=== PATIENT | female | born 1935 | race Caucasian/White ===

== ENCOUNTER 2017-06-17 00:09 | Inpatient (IN) | payer OTHER ==
[~2017-06-17] VITALS: Ht 160 cm; Wt 93.6 kg
[~2017-06-17 00:09] MED LIST: ALBUTEROL2.5 MG/3 M INH; ALLOPURINOL300 M1 PO; ASPIRIN EC81 M1 PO; AVAPRO150 M1 PO; CEFUROXIME250 M1 PO; CLINDAMYCIN HY300 MG PO; COUMADIN5 M2 PO; DIGOXIN125 MCG PO; DILTIAZEM HCL120 M2 PO; ELIQUIS5 M1 PO; FUROSEMIDE20 M1 PO; GLIPIZIDE ER10 M1 PO; GLIPIZIDE10 MG PO; HYDROCHLOROTH12.5 M3 PO; HYDRODIURIL 2525 MG PO; IRBESARTAN150 M1 PO; IRBESARTAN150 MG PO; IRON325 M3 PO; KLOR-CON 1010 ME1 PO; LASIX40 M1 PO; METFORMIN HCL1000 M1 PO; METFORMIN1000 MG PO; METOPROLOL SUCC50 M2 PO; METOPROLOL SUCC50 MG PO; NEXIUM40 M1 PO; ONGLYZA5 M1 PO; ONGLYZA5 MG PO; PREDNISONE10 M2 PO; PROAIR HFA8.5 GM IH; SIMVASTATIN40 M1 PO; SIMVASTATIN40 MG PO; SPIRIVA18 MCG INH; SYMBICORT 16010.2 GM INH; VITAMIN B-121000 MC3 PO; WARFARIN SODIUM5 MG PO; ZYLOPRIM300 M1 PO
[2017-06-17 00:59] LABS: ABSOLUTE BASOPHIL COUNT 0.1 /CUMM (0.0-0.2); ABSOLUTE EOSINOPHIL COUNT 0.4 /CUMM (0.0-0.7); ABSOLUTE GRANULOCYTE CT 6.3 /CUMM (1.4-6.5); ABSOLUTE LYMPH COUNT 0.9 /CUMM (1.2-3.4); ABSOLUTE MONOCYTE COUNT 1.1 /CUMM (0.10-0.60); BASOPHIL % 0.7 % (0.0-2.0); EOSINOPHIL % 4.2 % (0-5); GRANULOCYTE % 72.1 % (42.2-75.2); HEMATOCRIT 34.2 % (37-47); MEAN CORPUSCULAR HGB 27.4 PG (27.0-31.0); MEAN CORPUSCULAR VOLUME 85.7 FL (81.0-99.0); MEAN PLATELET VOLUME 8.9 FL (7.4-10.4); PLATELET COUNT 189 /CUMM (130-400); RBC DISTRIBUTION WIDTH 17.1 % (11.5-14.5); RED BLOOD CELL CT 3.99 /CUMM (4.20-5.40); WHITE BLOOD CELL COUNT 8.8 /CUMM (4.8-10.8)
--- NOTE | 2017-06-17 01:01 | ED DYSPNEA/ASTHMA COMPLAINT ---
History of Present Illness General Chief Complaint: Dyspnea (COPD, CHF, Other) Stated Complaint: "DRY COUGH,DIFF.BREATH,HX ASTHMA, SPO2 92% HR 67" Source: patient, family, old records Exam Limitations: no limitations Vital Signs & Intake/Output Vital Signs & Intake/Output Vital Signs Date Time Temp Pulse Resp B/P B/P Pulse O2 O2 Flow FiO2 Mean Ox Delivery Rate 06/17 0258 98.3 66 20 144/63 93 Room Air 06/17 0051 94 06/17 0030 97 Room Air 06/17 0017 96.9 54 20 162/71 92 Room Air Allergies Coded Allergies: Penicillins (SWELLING 11/14/15) Reconcile Medications Albuterol Sulfate (Proair Hfa) 90 MCG HFA.AER.AD 90 MEQ IH DAILY ASTHMA ( Reported) Albuterol Sulfate 2.5 MG/3 ML VIAL.NEB 3 ML INH EVERY 4 HRS/AWAKE ASTHMA Allopurinol (Zyloprim) 300 MG TABLET 150 MG PO DAILY gout Apixaban (Eliquis) 5 MG TABLET 5 MG PO BID BLOOD THINNER (Reported) Budesonide/Formoterol Fumarate (Symbicort 160-4.5 Mcg Inhaler) 10.2 GM HFA.AER.AD 2 PUF INH BID ASTHMA (Reported) Cyanocobalamin (Vitamin B-12) (Unknown Strength) TABLET 1 TAB PO DAILY SUPPLEMENT (Reported) Digoxin 125 MCG TABLET 1 TAB PO EOD HEART (Reported) Esomeprazole (Nexium) 40 MG CAP 1 CAP PO DAILY GI (Reported) Ferrous Sulfate (IRON) 325 MG TABLET 1 TAB PO BID SUPPLEMENT (Reported) Furosemide 20 MG TABLET 3 TAB PO DAILY Heart Failure Glipizide (Glipizide ER) 10 MG TAB.ER.24 1 TAB PO DAILY DIABETES (Reported) Irbesartan (Avapro) 150 MG TABLET 150 MG PO DAILY HTN (Reported) Metformin HCl 1,000 MG TABLET 1 TAB PO BID DIABETES (Reported) Metoprolol Succinate 50 MG TAB.ER.24H 1 TAB PO DAILY HEART/BP (Reported) Potassium Chloride (Klor-Con 10) 10 MEQ TABLET.ER 10 MEQ PO DAILY ELECTROLYTES (Reported) Prednisone 10 MG TABLET 10 MG PO BID GOUT Saxagliptin (Onglyza) 5 MG TABLET 1 TAB PO DAILY DIABETES (Reported) Simvastatin (Simvastatin*) 40 MG TABLET 1 TAB PO QPM CHOLESTEROL (Reported) Tiotropium [place] (Spiriva) 18 MCG CAP.W.DEV 1 PUFF INH DAILY ASTHMA Core Measure Meds Pre-Hospital eliquis Triage Note: PT FROM HOME WITH C/O CONTINOUS COUGHING. PT REPORTS USING HER NEB AT HOME X3. PT REPORTS COUGHING CLEAR SPUTUM. PT DENIES SOB,CP. Triage Nurses Notes Reviewed? yes Onset: Morning Duration: hour(s):, constant, continues in ED Timing: recent history Severity: moderate, severe Activities at Onset: rest Prior Episodes/Possible Cause: occasional episodes Modifying Factors: Improves With: rest. Worsens With: movement. Associated Symptoms: cough, wheezing LMP (ages 10-50): post menopausal : No Patient currently breastfeeds: No HPI: 1 day prior to admission patient complains of progressive weakness and wheezing with nonproductive cough. She denies fever chills nausea vomiting diarrhea abdominal pain chest pain headache dysuria rash bleeding. Past History Travel History Traveled to [place] past 21 day No Medical History Any Pertinent Medical History? 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 No Review of Systems Review of Systems Constitutional: Reports: no symptoms. EENTM: Reports: no symptoms. Respiratory: Reports: see HPI, cough, short of breath, wheezing. Cardiovascular: Reports: no symptoms. GI: Reports: no symptoms. Genitourinary: Reports: no symptoms. Musculoskeletal: Reports: no symptoms. Skin: Reports: no symptoms. Neurological/Psychological: Reports: no symptoms. Hematologic/Endocrine: Reports: no symptoms. Immunologic/Allergic: Reports: no symptoms. All Other Systems: Reviewed and Negative Physical Exam Physical Exam General Appearance: well developed/nourished, alert, awake, anxious, moderate distress, obese Head: atraumatic, normal appearance Eyes: Bilateral: normal appearance, PERRL, EOMI. Ears, Nose, Throat: normal pharynx, normal ENT inspection Neck: normal inspection, supple, full range of motion, no midline tenderness Respiratory: chest non-tender, decreased breath sounds, rhonchi, wheezing, respiratory distress Cardiovascular: regular rate/rhythm, normal peripheral pulses, norml femoral pulses equa Peripheral Pulses: 4+ carotid (R), 4+ carotid (L) Gastrointestinal: normal bowel sounds, soft, non-tender, no organomegaly Extremities: normal inspection, normal capillary refill, normal range of motion, no edema Neurologic/Psych: no motor/sensory deficits, awake, alert, oriented x 3, normal mood/affect, 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 Yes No ASA d/t Pharmacological CI CVA/TIA Diagnosis No Sepsis Present: No Sepsis Focused Exam Completed? No Progress Differential Diagnosis: asthma, bronchitis, CHF, COPD, pneumonia Plan of Care: Orders Procedure Date/time Status Consistent Carbohydrate 2 06/17 B Active OXYGEN SETUP (GEN) 06/18 231 Active Saline Lock 06/18 231 Active Admit to inpatient 06/18 231 Active Patient Data 06/17 023 Active Vital Signs 06/18 231 Active Activity/Ambulation 06/18 231 Active Code Status 06/18 231 Active TROPONIN LEVEL 06/17 003 Complete MAGNESIUM 06/17 34 Complete COMPREHENSIVE METABOLIC PANEL 06/17 34 Complete CBC WITHOUT DIFFERENTIAL 06/17 34 Complete B-TYPE NATRIURETIC PEP (BNP) 06/17 34 Complete EKG 06/17 34 Active Intake & Output 06/17 0029 Active Current Medications Sig/Marcie Start time Last Medication Dose Stop Time Status Admin Furosemide 60 MG ONCE ONE 06/17 329 UNVr (Lasix) 06/17 033 Laboratory Tests 06/17/17 0045: Anion Gap 10, Estimated GFR 22 L, BUN/Creatinine Ratio 28.6 H, Glucose 155 H, Calcium 9.0, Magnesium 1.7, Total Bilirubin 0.5, AST 32, ALT 33, Alkaline Phosphatase 96, Troponin I 0.01, Mdh-E-Anhecpztxnw Pept 70006 H, Total Protein 6.0 L, Albumin 3.4 L, Globulin 2.6, Albumin/Globulin Ratio 1.3, CBC w Diff NO MAN DIFF REQ, RBC 3.99 L, MCV 85.7, MCH 27.4, MCHC 32.0 L, RDW 17.1 H, MPV 8.9, Gran % 72.1, Lymphocytes % 10.1 L, Monocytes % 12.9 H, Eosinophils % 4.2, Basophils % 0.7, Absolute Granulocytes 6.3, Absolute Lymphocytes 0.9 L, Absolute Monocytes 1.1 H, Absolute Eosinophils 0.4, Absolute Basophils 0.1 Diagnostic Imaging: Viewed by Me: Radiology Read. Discussed w/RAD: Radiology Read. CXR Impression: Hazy right basilar opacity with adjacent possible small pleural effusion. Prominence of the central vasculature may reflect congestion, without overt edema. Initial ED EKG: AFIB, LBBB Prior EKG: unchanged Rhythm Strip: atrial fibrillation Departure Departure Disposition: STILL A PATIENT Condition: Stable Clinical Impression Primary Impression: Bronchospasm, acute Secondary Impressions: Atrial fibrillation, CHF (congestive heart failure) Referrals: Wale Coreas MD (PCP/Family) Departure Forms: Customer Survey General Discharge Information Admission Note Spoke With: Hayes Mars MD Documentation of Exam: Documentation of any treatments & extenuating circumstances including Concerns Regarding Discharge (functional status, medication knowledge or non-compliance, living conditions, etc.) that warrant an admission rather than observation: IV diuresis supplemental oxygen beta agonist nebs IV steroids medication adjustment physical therapy continuing care discharge planning Critical Care Note Critical Care Note Critical Care Time: non-applicable
--- NOTE | 2017-06-17 01:53 | RADIOLOGY REPORT ---
EXAMINATION: XR PORTABLE CHEST CLINICAL INFORMATION: Cough, wheezing COMPARISON: 02/16/2016 TECHNIQUE: Portable frontal view of the chest was obtained. FINDINGS: Left-sided pacemaker lead tips overlie the right atrium and right ventricle. Patient appears status post TAVR. There is slight elevation of the right hemidiaphragm. There is adjacent hazy opacification of the right lung base with a possible small right pleural effusion. No focal left lung consolidation is seen. No evidence of pneumothorax. There is mild fullness of the central vasculature. The cardiac silhouette appears mildly enlarged for technique. Calcification is present at the aortic arch. No acute osseous findings are seen. IMPRESSION: Hazy right basilar opacity with adjacent possible small pleural effusion. Prominence of the central vasculature may reflect congestion, without overt edema.
--- NOTE | 2017-06-17 02:36 | History & Physical ---
Juan GUAJARDO,[facility] 06/17/17 0235: General Information and HPI MD Statement: I have seen and personally examined NOAH FRANK and documented this H&P. The patient is a 81 year old F who presented with a patient stated chief complaint of [cough]. 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 The patient is sinhala speaking and the history is translated via the daughter. The daughter states that the patient started having a cough last night. She then had SOB and was wheezy today. Pt also endorses leg swelling. Family member states nebs did not help. The pt endorses cp and palpitations. She deneis any dizzyness, blury vision, abd distension, changes in elimination or SOB. Allergies/Medications Allergies: Coded Allergies: Penicillins (SWELLING 11/14/15) Home Med list Albuterol Sulfate (Proair Hfa) 90 MCG HFA.AER.AD 90 MEQ IH DAILY ASTHMA ( Reported) Albuterol Sulfate 2.5 MG/3 ML VIAL.NEB 3 ML INH EVERY 4 HRS/AWAKE ASTHMA Allopurinol (Zyloprim) 300 MG TABLET 150 MG PO DAILY gout Apixaban (Eliquis) 5 MG TABLET 5 MG PO BID BLOOD THINNER (Reported) Budesonide/Formoterol Fumarate (Symbicort 160-4.5 Mcg Inhaler) 10.2 GM HFA.AER.AD 2 PUF INH BID ASTHMA (Reported) Cyanocobalamin (Vitamin B-12) (Unknown Strength) TABLET 1 TAB PO DAILY SUPPLEMENT (Reported) Digoxin 125 MCG TABLET 1 TAB PO EOD HEART (Reported) Esomeprazole (Nexium) 40 MG CAPSULE.DR 1 CAP PO DAILY GI (Reported) Ferrous Sulfate (IRON) 325 MG TABLET 1 TAB PO BID SUPPLEMENT (Reported) Furosemide 40 MG TABLET 1 TAB PO DAILY fluid rentention Glipizide (Glipizide ER) 10 MG TAB.ER.24 1 TAB PO DAILY DIABETES (Reported) Irbesartan (Avapro) 150 MG TABLET 150 MG PO DAILY HTN (Reported) Metoprolol Succinate 50 MG TAB.ER.24H 3 TAB PO DAILY HEART/BP (Reported) Potassium Chloride (Klor-Con 10) 10 MEQ TABLET.ER 10 MEQ PO DAILY ELECTROLYTES (Reported) Prednisone 10 MG TABLET 10 MG PO SEE ADMIN CRITERIA LUNG Take 40 mg 06/19, 06/20 Take 30 mg 06/21, 06/22 Take 20 mg 06/23, 06/24 Take 10 mg 06/25 Saxagliptin (Onglyza) 5 MG TABLET 1 TAB PO DAILY DIABETES (Reported) Simvastatin (Simvastatin*) 40 MG TABLET 1 TAB PO QPM CHOLESTEROL (Reported) Past History Travel History Traveled to [place] past 21 day No Medical History Neurological: NONE EENT: cataracts Cardiovascular: AFIB, CHF, hypertension, hyperlipidemia, PACEMAKER CARDIAC CATH Respiratory: asthma Gastrointestinal: NONE Hepatic: NONE Renal: NONE Musculoskeletal: gout Psychiatric: NONE Endocrine: diabetes Blood Disorders: anemia Cancer(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 child Services at Home: None Primary Language: Malagasy Review of Systems Review of Systems Constitutional: Reports: see HPI. Cardiovascular: Reports: see HPI, chest pain. Respiratory: Reports: see HPI, wheezing. Exam & Diagnostic Data Last 24 Hrs of Vital Signs/I&O Vital Signs Date Time Temp Pulse Resp B/P B/P Pulse O2 O2 Flow FiO2 Mean Ox Delivery Rate 06/17 0430 93 Room Air / 0412 98.7 95 18 168/78 93 Room Air 03/ 0340 98.8 66 18 146/65 92 03/ 0258 98.3 66 20 144/63 93 Room Air 03/ 0051 94 / 0030 97 Room Air / 0017 96.9 54 20 162/71 92 Room Air Intake & Output / 1600 / 0800 03/04 0000 Intake Total Output Total 1600 Balance -1600 Output, Urine 1600 Patient 177 lb Weight Physical Exam General Appearance Alert, Oriented X3, Cooperative, No Acute Distress HEENT jvd+ Cardiovascular systolic murmur Lungs b/l wheezing Abdomen Normal Bowel Sounds, Soft, No Tenderness Extremities 3+ pitting edema. R worst than L. Vascular 2+ radial pulses Last 24 Hrs of Labs/Rios: Laboratory Tests 06/17/17 0045: Anion Gap 10, Estimated GFR 22 L, BUN/Creatinine Ratio 28.6 H, Glucose 155 H, Calcium 9.0, Magnesium 1.7, Total Bilirubin 0.5, AST 32, ALT 33, Alkaline Phosphatase 96, Troponin I 0.01, Azl-B-Pxcfjokjmyg Pept 65513 H, Total Protein 6.0 L, Albumin 3.4 L, Globulin 2.6, Albumin/Globulin Ratio 1.3, CBC w Diff NO MAN DIFF REQ, RBC 3.99 L, MCV 85.7, MCH 27.4, MCHC 32.0 L, RDW 17.1 H, MPV 8.9, Gran % 72.1, Lymphocytes % 10.1 L, Monocytes % 12.9 H, Eosinophils % 4.2, Basophils % 0.7, Absolute Granulocytes 6.3, Absolute Lymphocytes 0.9 L, Absolute Monocytes 1.1 H, Absolute Eosinophils 0.4, Absolute Basophils 0.1 Assessment/Plan Assessment: 81-year-old Malagasy speaking female with past medical history of afib s/p PPM, atrial tachycardia with attempted ablation in 2012 with residual atrial arrhythmias maintained on chronic anticoagulation, 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 Prominence of the central vasculature may reflect congestion, without overt edema. Echo 2016: EF 50% with severe Pro bnp : 10,100 -trop ekg @ 7am, 2pm -cont lasix IV 40 daily -strict I/O -cardiology consult f/u -f/u echo -interrogation of pacemaker #asthma/COPD -symbicort -solumedrol BID -TRC nebs prn -pulm consult with Dr. Holly sunday #LE edema RLE > L -f/u doppler US #DEVI Cr 2.2 (baseline) -cont to monitor #diabetes -novolog sliding scale -f/u hgbA1c #hx of afib -cont eliquis #home meds -cont atorvastain, metorpolol, ferrous sulfate, allopurinol, albuterol #dvt prophylaxis : eliquis #FULL CODE As Ranked By This Provider Problem List: 1. CHF (congestive heart failure) Core Measures/Misc (12/31) Acute Coronary Syndrome ACS Diagnosis: No Congestive Heart Failure Congestive Heart Failure Diagnosis Yes Cerebrovascular Accident CVA/TIA Diagnosis: No VTE (View Protocol) VTE Risk Factors Acute Medical Illness No Mechanical VTE Prophylaxis d/t Other No VTE Pharm Prophylaxis d/t NA PharmProphylax ordered Sepsis (View protocol) Sepsis Present: No Jerad GUAJARDO, [facility] 06/17/17 0604: Attending MD Review Statement Attending Statement Attending MD Statement: examined this patient, discuss w/resident/PA/TANK STORAGE SUPERVISOR, agreed w/resident/PA/TANK STORAGE SUPERVISOR, discussed with family, reviewed images, amended to note Attending Assessment/Plan: 81 yo F Malagasy speaking female, with h/o HTN, DM, atrial tachycardia with attempted ablation in 2012 with residual atrial arrhythmias maintained on chronic anticoagulation, 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 Reports weakness and worsening of chronic lower extremity edema. Denies chest pain, lightheadedness or palpitations. She is on lasix 20 mg alternating with 40 mg daily as per Cardiology. She recently had an Echo one month back and a nuclear stress echo/ test results of which are unknown. She follows up with Dr. Ritter. She received duonebs, solumedrol and IV lasix 60 mg in the ER, diuresed 600 cc. Reports feeling better. Vitals: afebrile, HR 80-90's, BP 168/78, sats 92-93% RA. Exam: AAO, in mild respiratory distress, MMM, JVD 6 cm+, Chest b/l wheezing++ with basilar crackles, Heart S1S2 irregular, systolic murmur+, LE: 2+ pitting pedal edema. Labs: no leukocytosis, bicarb 21, BUN 63, creat 2.2 (baseline 1.5-1.7), Mag 1.7, trop 0.01, proBNP 25220. CXR: hazy right basilar opacity with small pleural effusion. Prominence of central vasculature reflects congestion, no over edema. EKG: Afib, difficult to appreciate 'p' waves, LBBB (not seen on previous EKG), Qtc 466. Echo (2016): EF 50%, mild to mod TR, RVSP elevated. Assessment and plan: 1. Acute on chronic heart failure combination of systolic and diastolic dysfunction 2. Asthma with acute bronchospasm, no diagnosis of COPD 3. Chronic venous insufficiency 4. Atrial fibrillation, rate controlled, on eliquis 5. EKG with LBBB (?new) 6. DEVI on CKD stage 3 - Admit to Telemetry - Monitor for arrhythmias - Serial EKG and troponin to rule out ACS - Strict I/O's, daily weights - IV lasix 40 daily - Monitor renal functions while on lasix - Cardio consult - Obtain echo results done as outpatient - Check TSH, free T4 - TRC nebs - IV steroids 40 BID --> rapid prednisone taper - Pulm consult (Dr. Holly) - Hold irbesartan - Continue metoprolol, simvastatin and eliquis - Replete electrolytes - Diabetes management with insulin DVT ppx Eliquis. Full code. Venus GUAJARDO,[facility] 06/17/17 0647: Resident Review Statement Resident Statement: examined this patient, discussed with sports internship, agreed with sports internship, discussed with family Other Findings: Ms. Frank is 81 year old female with past medical history significant for COPD not on home oxygen, atrial fibrillation on eliquis status post unsuccessful cardioversion 2012, tachybradycardia syndrome status post pacemaker, CHF echo 2016 above EF50, aortic stenosis status post TAVR with bovine valve replacement 2016, CK D stage III, diabetes, hypertension, hyperlipidemia, asthma, gout, chronic venous insufficiency who presented with a chief complaint of continuous productive cough of clear sputum for 1 day. Patient reported history of productive cough of clear sputum for 1 day, not associated with shortness of breath, chest pain, palpitation, dizziness, blury vision, lower extremity edema above baseline. She had Lasix adjusted from 40 daily to 40/20 every other day since February 2017. Patient denied any exertion on movement. Problem list #Acute on chronic congestive heart failure #COPD #Aortic stenosis status post TAVR #Diabetes mellitus Plan -Admit to telemetry floor -Lasix 40 daily -Strict measurement of ins and outs and daily weights -Cardiology consultation, patient sees Demario Ritter MD as an outpatient -Solu-Medrol 40 twice a day -Pulmonary consultation, patient sees Dr. Holly as an outpatient -[facility] -Continue home medication except are was given kidney function -Monitor CBC and BEP -Echocardiogram -Interrogation of pacemaker -Accu-Chek and NovoLog sliding scale low-dose -Consider obtaining hemoglobin A1c -Troponin and EKG -Diet diabetic diet with sodium restriction -DVT prophylaxis Eliquis -Code full
[2017-06-17 04:12] VITALS: BP 168/78
--- NOTE | 2017-06-17 05:38 | Admission Certification ---
Admission Certification Certification Statement - As attending physician, I certify that at the time of - admission, based on clinical presentation, severity of - symptoms, need for further diagnostic testing and - therapeutic interventions, and risk of adverse outcomes - without in-hospital treatment, in my clinical assessment, - this patient requires an acute hospital stay for a minimum - of two nights or longer. I have also considered psychsocial - factors such as support system, advanced age, financial - issues, cognitive issues, and failed out-patient treatments, - past re-admission history, safety of patient, and lack of - compliance as applicable. Specific rationale supporting this admission is: Acute on chronic congestive heart failure, bronchospasm with asthma exacerbation.
[2017-06-17 10:25] LABS: ABSOLUTE BASOPHIL COUNT 0 /CUMM (0.0-0.2); ABSOLUTE EOSINOPHIL COUNT 0 /CUMM (0.0-0.7); ABSOLUTE GRANULOCYTE CT 4.6 /CUMM (1.4-6.5); ABSOLUTE LYMPH COUNT 0.5 /CUMM (1.2-3.4); ABSOLUTE MONOCYTE COUNT 0.1 /CUMM (0.10-0.60); BASOPHIL % 0 % (0.0-2.0); EOSINOPHIL % 0.1 % (0-5); MEAN CORPUSCULAR HGB 27.3 PG (27.0-31.0); MEAN CORPUSCULAR HGB CONC 31.9 G/DL (33.0-37.0); MEAN CORPUSCULAR VOLUME 85.6 FL (81.0-99.0); MEAN PLATELET VOLUME 9.6 FL (7.4-10.4); PLATELET COUNT 178 /CUMM (130-400); RBC DISTRIBUTION WIDTH 17.7 % (11.5-14.5); RED BLOOD CELL CT 3.98 /CUMM (4.20-5.40); WHITE BLOOD CELL COUNT 5.2 /CUMM (4.8-10.8)
[2017-06-17 11:10] LABS: GRANULOCYTE % 89.6 % (42.2-75.2)
--- NOTE | 2017-06-17 12:22 | PN- Att Addend ---
Attending Addendum Attending Brief Note Patient seen and examined. Resting comfortably not in acute distress. Daughter present at the bedside. Patient reports feeling better compared to presentation. Denies chest pain. Complains of productive cough. Complains of shortness of breath with exertion. Vital Signs Date Time Temp Pulse Resp B/P B/P Pulse O2 O2 Flow FiO2 Mean Ox Delivery Rate 06/17 0430 93 Room Air / 0412 98.7 95 18 168/78 93 Room Air / 0340 98.8 66 18 146/65 92 / 0258 98.3 66 20 144/63 93 Room Air / 0051 94 / 0030 97 Room Air / 0017 96.9 54 20 162/71 92 Room Air General appearance: Well-developed, not in respiratory distress. Heart: S1-S2 regular with 3/6 systolic murmur. Lungs: Diffuse rhonchi bilaterally. Abdomen: Soft, nontender with normal bowel sounds. Extremities: No pedal edema. Skin: Intact. Laboratory Tests 06/17/17914: Troponin I < 0.01 06/17/17914: Anion Gap 11, Estimated GFR 24 L, BUN/Creatinine Ratio 32.0 H, Hemoglobin A1c Pending, Free T4 1.28, Total T3 0.91 L, TSH &T3 &Free T4 Intrp 0.730 06/17/17914: Sodium Cancelled, Potassium Cancelled, Chloride Cancelled, Carbon Dioxide Cancelled, Anion Gap Cancelled, BUN Cancelled, Creatinine Cancelled, BUN/ Creatinine Ratio Cancelled, Hemoglobin A1c Cancelled, CBC w Diff NO MAN DIFF REQ , RBC 3.98 L, MCV 85.6, MCH 27.3, MCHC 31.9 L, RDW 17.7 H, MPV 9.6, Gran % 89.6 H, Lymphocytes % 9.2 L, Monocytes % 1.1 L, Eosinophils % 0.1, Basophils % 0, Absolute Granulocytes 4.6, Absolute Lymphocytes 0.5 L, Absolute Monocytes 0.1, Absolute Eosinophils 0, Absolute Basophils 0 06/17/17 0045: Anion Gap 10, Estimated GFR 22 L, BUN/Creatinine Ratio 28.6 H, Glucose 155 H, Calcium 9.0, Magnesium 1.7, Total Bilirubin 0.5, AST 32, ALT 33, Alkaline Phosphatase 96, Troponin I 0.01, Aki-Z-Hjmobjzikmd Pept 62829 H, Total Protein 6.0 L, Albumin 3.4 L, Globulin 2.6, Albumin/Globulin Ratio 1.3, CBC w Diff NO MAN DIFF REQ, RBC 3.99 L, MCV 85.7, MCH 27.4, MCHC 32.0 L, RDW 17.1 H, MPV 8.9, Gran % 72.1, Lymphocytes % 10.1 L, Monocytes % 12.9 H, Eosinophils % 4.2, Basophils % 0.7, Absolute Granulocytes 6.3, Absolute Lymphocytes 0.9 L, Absolute Monocytes 1.1 H, Absolute Eosinophils 0.4, Absolute Basophils 0.1 Problems: 1. COPD exacerbation. 2. Possible acute on chronic diastolic dysfunction. 3. Chronic anemia. 4. Chronic kidney disease stage III. Plan: -Patient clearly has exacerbation of her chronic obstructive pulmonary disease. Continue bronchodilator therapy. Continue systemic steroid therapy intravenously. -She may have some component of acute decompensation of systolic dysfunction. Continue diuresis with Lasix. Would recommend transitioning back to her oral regimen tomorrow given the rise in her creatinine. -Mobilize patient as tolerated. -Notify patient's pulmonology service (Georgi Holly MD) tomorrow.
--- NOTE | 2017-06-17 14:44 | ULTRASOUND REPORT ---
EXAMINATION: US TRIPLEX OF LOWER EXTREMITIES, BILATERAL CLINICAL INFORMATION: 81-year-old woman with lower extremity swelling. COMPARISON: None TECHNIQUE: Color-flow triplex imaging with spectral analysis and compression Doppler were performed on the lower extremities. FINDINGS: The examination is limited due to patient body habitus. Respiratory variation, normal compression and augmented flow are noted throughout the lower extremities. The visualized common femoral vein, superficial femoral vein, profunda femoral vein, popliteal vein and midcalf peroneal and posterior tibial venous segments show no evidence of deep venous thrombosis. There is no Lemon's cyst. IMPRESSION: Normal triplex scan without evidence of deep venous thrombosis involving the lower extremities.
[2017-06-17 14:55] VITALS: BP 130/50
--- NOTE | 2017-06-17 20:12 | Cons- Cardiology ---
General Information and HPI Consulting Request Date of Consult: 06/17/17 Requested By: Jerad GUAJARDO,Hayes Reason for Consult: Heart failure History of Present Illness: The patient is a 81-year-old female with history of atrial fibrillation, permanent pacemaker, TAVR in 2017, chronic heart failure, chronic kidney disease , and hypertension who is followed in the office by Dr. Bhatti. She presents with shortness of breath and cough for the past few days. She notes recent wheezing which is not resolved with nebulizer therapy. She also complains of recent weakness and worsening of her chronic lower extremity edema. She has had no chest pain. No palpitations. No syncope. No diaphoresis. Her tooth cutter clutch is Demario Ritter MD. She takes Lasix 20 mg alternating with 40 mg at home. No nausea or vomiting. No dizziness. IV Lasix therapy has been initiated, and she is feeling somewhat better. Allergies/Medications Allergies: Coded Allergies: Penicillins (SWELLING 11/14/15) Home Med List: Albuterol Sulfate (Proair Hfa) 90 MCG HFA.AER.AD 90 MEQ IH DAILY ASTHMA ( Reported) Albuterol Sulfate 2.5 MG/3 ML VIAL.NEB 3 ML INH EVERY 4 HRS/AWAKE ASTHMA Allopurinol (Zyloprim) 300 MG TABLET 150 MG PO DAILY gout Apixaban (Eliquis) 5 MG TABLET 5 MG PO BID BLOOD THINNER (Reported) Budesonide/Formoterol Fumarate (Symbicort 160-4.5 Mcg Inhaler) 10.2 GM HFA.AER.AD 2 PUF INH BID ASTHMA (Reported) Cyanocobalamin (Vitamin B-12) (Unknown Strength) TABLET 1 TAB PO DAILY SUPPLEMENT (Reported) Digoxin 125 MCG TABLET 1 TAB PO EOD HEART (Reported) Esomeprazole (Nexium) 40 MG CAP 1 CAP PO DAILY GI (Reported) Ferrous Sulfate (IRON) 325 MG TABLET 1 TAB PO BID SUPPLEMENT (Reported) Furosemide 20 MG TABLET 3 TAB PO DAILY Heart Failure Glipizide (Glipizide ER) 10 MG TAB.ER.24 1 TAB PO DAILY DIABETES (Reported) Irbesartan (Avapro) 150 MG TABLET 150 MG PO DAILY HTN (Reported) Metoprolol Succinate 50 MG TAB.ER.24H 3 TAB PO DAILY HEART/BP (Reported) Potassium Chloride (Klor-Con 10) 10 MEQ TABLET.ER 10 MEQ PO DAILY ELECTROLYTES (Reported) Saxagliptin (Onglyza) 5 MG TABLET 1 TAB PO DAILY DIABETES (Reported) Simvastatin (Simvastatin*) 40 MG TABLET 1 TAB PO QPM CHOLESTEROL (Reported) Current Medications: Current Medications Sig/Marcie Start time Last Medication Dose Route Stop Time Status Admin Acetaminophen 650 MG Q6P PRN 06/17 0515 AC PO Albuterol Sulfate 3 ML BID 04 2200 AC 04 INH 1206 Albuterol Sulfate 2 PUF Q4-6 PRN PRN 06/17 1000 AC INH Albuterol Sulfate 3 ML Q6 PRN 06/17 0930 DC INH Albuterol Sulfate 3 ML EVERY 4 HRS/AWAKE 06/17 0800 DC INH Albuterol Sulfate 3 ML ONCE ONE 06/17 0045 DC 06/17 INH 06/17 0046 0051 Allopurinol 150 MG DAILY 06/17 1000 AC / PO 0916 Apixaban 5 MG BID / 1000 AC 06/17 PO 0916 Atorvastatin Calcium 20 MG 1700 04 1700 AC 06/17 PO 1727 Budesonide/ 2 PUF BID 04 1000 AC 06/17 Formoterol Fumarate INH 0917 Ferrous Sulfate 325 MG BID 06/17 1000 AC / PO 0916 Furosemide 40 MG DAILY 06/17 1000 AC 06/17 IV 0915 Furosemide 0 .STK-MED ONE 06/17 0341 DC IV Furosemide 60 MG ONCE ONE 06/17 0330 DC 06/17 IV PUSH 06/17 0331 0342 Heparin Sodium 5,000 UNIT Q8 06/17 0600 CAN (Porcine) SC Insulin Aspart 0 TIDAC 06/17 0800 AC 06/17 SC 1727 Ipratropium [place] 2.5 ML Q6-PRN PRN 06/17 0930 DC INH Ipratropium [place] 2.5 ML ONCE ONE 06/17 0045 DC 06/17 INH 06/17 0046 0051 Magnesium Oxide 400 MG ONE ONE 06/17 0745 DC 03/ PO 06/17 0746 0915 Methylprednisolone 40 MG Q12 /04 1000 AC 03/04 IV 0915 Methylprednisolone 125 MG ONCE ONE 06/17 0045 DC 03/ IV 0304 0046 0051 Methylprednisolone 0 .STK-MED ONE 06/17 0045 DC .ROUTE Metoprolol Succinate 150 MG DAILY 04 1000 AC 03 PO 1304 Review of Systems Review of Systems: No rash. No tremor. No fever. No hemoptysis. No hematemesis. All other systems were reviewed, and were noted to be negative. Past History Travel History Traveled to [place] past 21 day No Medical History Blood Transfusion Hx: Yes Neurological: NONE EENT: cataracts Cardiovascular: AFIB, CHF, hypertension, hyperlipidemia, PACEMAKER CARDIAC CATH Respiratory: asthma Gastrointestinal: NONE Hepatic: NONE Renal: NONE Musculoskeletal: gout Psychiatric: NONE Endocrine: diabetes Blood Disorders: anemia Cancer(s): NONE BRAKE ADJUSTER/Reproductive: NONE Surgical History Surgical History: hernia repair-inguinal, knee replacement, PACEMAKER JARED ROTATOR CUFF shoulder surgery Family History Relations & Conditions If Any: MOTHER Heart attack Psychosocial History Who Do You Live With? child Services at Home: None Primary Language: Ecuadorean Smoking Status: Never Smoked ECHO Results (as available) Report: Severe aortic stenosis, severe pulmonary hypertension, biatrial enlargement with restrictive filling pattern Exam & Diagnostic Data Vital Signs and I&O Vital Signs Date Time Temp Pulse Resp B/P B/P Pulse O2 O2 Flow FiO2 Mean Ox Delivery Rate 06/17 1455 98.1 70 16 130/50 91 Room Air 03/ 1304 95 150/54 03/04 1250 Room Air 03/ 1215 94 Room Air /04 0430 93 Room Air 03/04 0412 98.7 95 18 168/78 93 Room Air 03/04 0340 98.8 66 18 146/65 92 03/04 0258 98.3 66 20 144/63 93 Room Air 03/04 0051 94 03/04 0030 97 Room Air 03/04 0017 96.9 54 20 162/71 92 Room Air Intake & Output 06/17 1600 06/17 0800 06/17 0000 06/16 1600 06/16 0800 06/16 0000 Intake Total 750 Output Total 1000 1600 Balance -250 -1600 Intake, Oral 750 Output, Urine 1000 1600 Patient 177 lb Weight Weight Bed scale Measurement Method Physical Exam: Gen: The patient is in no acute distress HEENT: Normal nose, ears, and oropharynx. Pupils equal bilaterally. Conjunctiva normal. Neck: Supple with no JVD, no masses, and no thyromegaly Lungs: Bilateral rhonchi with normal respiratory effort Heart: RRR, S1, S2, 2/6 systolic murmur. 2+ peripheral edema, 2+ pulses in the lower extremities bilaterally Abdomen: Soft, nontender, no masses. No hepatomegaly. No splenomegaly Extremities: No clubbing or cyanosis. Normal muscle strength in the upper and lower extremities Skin: Normal skin turgor with no skin ulcers or lesions noted. Neuro: Cranial nerves intact. Sensation intact Psych: Alert and oriented x 3 with appropriate affect Labs/Rios Results: Laboratory Tests 06/17 06/17 06/17 1420 0915 0915 Chemistry Sodium (137 - 145 mmol/L) 140 Potassium (3.5 - 5.1 mmol/L) 4.7 Chloride (98 - 107 mmol/L) 108 H Carbon Dioxide (22 - 30 mmol/L) 21 L Anion Gap (5 - 16) 11 BUN (7 - 17 mg/dL) 64 H Creatinine (0.5 - 1.0 mg/dL) 2.0 H Estimated GFR (>60 ml/min) 24 L BUN/Creatinine Ratio (7 - 25 %) 32.0 H Hemoglobin A1c (4.2 - 5.8 %) Pending Troponin I (< 0.11 ng/ml) < 0.01 < 0.01 Free T4 (0.78 - 2.44 ng/dL) 1.28 Total T3 (0.97 - 1.69 ng/mL) 0.91 L TSH &T3 &Free T4 Intrp (0.270 - 4.20 uIU/mL) 0.730 06/17 06/17 0915 0045 Chemistry Sodium (137 - 145 mmol/L) Cancelled 138 Potassium (3.5 - 5.1 mmol/L) Cancelled 4.5 Chloride (98 - 107 mmol/L) Cancelled 106 Carbon Dioxide (22 - 30 mmol/L) Cancelled 21 L Anion Gap (5 - 16) Cancelled 10 BUN (7 - 17 mg/dL) Cancelled 63 H Creatinine (0.5 - 1.0 mg/dL) Cancelled 2.2 H Estimated GFR (>60 ml/min) 22 L BUN/Creatinine Ratio (7 - 25 %) Cancelled 28.6 H Glucose (65 - 99 mg/dL) 155 H Hemoglobin A1c Cancelled Calcium (8.4 - 10.2 mg/dL) 9.0 Magnesium (1.6 - 2.3 mg/dL) 1.7 Total Bilirubin (0.2 - 1.3 mg/dL) 0.5 AST (14 - 36 U/L) 32 ALT (9 - 52 U/L) 33 Alkaline Phosphatase (<127 U/L) 96 Troponin I (< 0.11 ng/ml) 0.01 [id number]-[id number] Pept (<125 pg/mL) 43358 H Total Protein (6.3 - 8.2 g/dL) 6.0 L Albumin (3.5 - 5.0 g/dL) 3.4 L Globulin (1.9 - 4.2 gm/dL) 2.6 Albumin/Globulin Ratio (1.1 - 2.2 %) 1.3 Hematology CBC w Diff NO MAN DIFF REQ NO MAN DIFF REQ WBC (4.8 - 10.8 /CUMM) 5.2 8.8 RBC (4.20 - 5.40 /CUMM) 3.98 L 3.99 L Hgb (12.0 - 16.0 G/DL) 10.9 L 10.9 L Hct (37 - 47 %) 34.0 L 34.2 L MCV (81.0 - 99.0 FL) 85.6 85.7 MCH (27.0 - 31.0 PG) 27.3 27.4 MCHC (33.0 - 37.0 G/DL) 31.9 L 32.0 L RDW (11.5 - 14.5 %) 17.7 H 17.1 H Plt Count (130 - 400 /CUMM) 178 189 MPV (7.4 - 10.4 FL) 9.6 8.9 Gran % (42.2 - 75.2 %) 89.6 H 72.1 Lymphocytes % (20.5 - 51.1 %) 9.2 L 10.1 L Monocytes % (1.7 - 9.3 %) 1.1 L 12.9 H Eosinophils % (0 - 5 %) 0.1 4.2 Basophils % (0.0 - 2.0 %) 0 0.7 Absolute Granulocytes (1.4 - 6.5 /CUMM) 4.6 6.3 Absolute Lymphocytes (1.2 - 3.4 /CUMM) 0.5 L 0.9 L Absolute Monocytes (0.10 - 0.60 /CUMM) 0.1 1.1 H Absolute Eosinophils (0.0 - 0.7 /CUMM) 0 0.4 Absolute Basophils (0.0 - 0.2 /CUMM) 0 0.1 Diagnostic Data EKG Results EKG tracing is independently reviewed, and reveals atrial fibrillation with ventricular response of 70, left bundle branch CXR Results Hazy right basilar opacity with adjacent possible small pleural effusion. Prominence of the central vasculature may reflect congestion, without overt edema. Other Results Echocardiogram 11/15/15: Technically difficult study. Left ventricular cavity size normal. Left ventricular wall thickness mildly increased. Abnormal septal motion consistent with an intraventricular conduction defect. Left ventricular ejection fraction is estimated at 50 %. Catheter/pacemaker wire in the right ventricular cavity. Normal right ventricular size and function. Mild left atrial dilatation. Moderate to severe aortic stenosis (mean gradient 38 mmHg with RACHANA estimated at 1.0 cm2). [id number]-baqtmbmi tricuspid regurgitation. Right ventricular systolic pressure estimated to be elevated at > 47 mmHg. Bilateral lower extremity Doppler study:Normal triplex scan without evidence of deep venous thrombosis involving the lower extremities. Assessment/Plan Assessment/Plan The patient is a 81-year-old female with history of atrial fibrillation, pacemaker, TAVR, chronic kidney disease, and hypertension who presents with shortness of breath and wheezing. The clinical presentation appears to be secondary to COPD exacerbation with possible acute on chronic diastolic heart failure. Lasix therapy has been initiated. Creatinine is above baseline but is decreasing. Recommendations: * Continue Lasix 40 mg IV to * Monitor input and output with daily weights * Check basic metabolic profile daily * Echocardiogram * Continue other cardiac medications Consult Acknowledgment - Thank you for your consult request.
[2017-06-17 22:31] VITALS: BP 144/86
[2017-06-18 06:30] VITALS: BP 130/58
--- NOTE | 2017-06-18 07:31 | PN- Housestaff ---
Marycarmen Ley 06/18/17 0731: Subjective Follow-up For: Acute on chronic heart failure Asthma with acute bronchospasm EKG with LBBB (?new) DEVI on CKD stage 3 Tele-Events Since Last Visit: Paced HR 71-76 Subjective: No complaints or acute events overnight Review of Systems Constitutional: Reports: see HPI. Objective Last 24 Hrs of Vital Signs/I&O Vital Signs Date Time Temp Pulse Resp B/P B/P Pulse O2 O2 Flow FiO2 Mean Ox Delivery Rate 06/18 0630 97.7 71 20 130/58 92 03/05 0000 94 Room Air 03/04 2231 98.1 75 22 144/86 92 03/04 2128 95 Room Air 03/04 1455 98.1 70 16 130/50 91 Room Air 03/04 1304 95 150/54 03/04 1250 Room Air 03/04 1215 94 Room Air Intake & Output / 1600 03/05 0800 03/05 0000 Intake Total 0 252 Output Total 500 1250 Balance -500 -998 Intake, IV 12 Intake, Oral 0 240 Number Bowel Movements Output, Urine 500 1250 Patient 206 lb Weight Physical Exam General Appearance: Alert, Oriented X3, Cooperative, No Acute Distress Cardiovascular: 2/6 systolic murmur Lungs: BL wheezing Abdomen: Normal Bowel Sounds, Soft, No Tenderness Extremities: Varicose veins Current Medications: Current Medications Sig/Marcie Start time Last Medication Dose Route Stop Time Status Admin Acetaminophen 650 MG Q6P PRN / 0515 AC PO Albuterol Sulfate 3 ML BID / 2200 AC / INH 1043 Albuterol Sulfate 2 PUF Q4-6 PRN PRN /04 1000 AC INH Allopurinol 150 MG DAILY 03/04 1000 AC 03/05 PO 0855 Apixaban 5 MG BID 03/04 1000 AC 03/05 PO 0855 Atorvastatin Calcium 20 MG 1700 03/04 1700 AC 03/04 PO 1727 Budesonide/ 2 PUF BID 03/04 1000 AC 03/05 Formoterol Fumarate INH 0856 Ferrous Sulfate 325 MG BID 03/04 1000 AC 03/05 PO 0855 Furosemide 40 MG DAILY 03/04 1000 AC 03/05 IV 0904 Guaifenesin 10 ML Q6P PRN 03/04 2215 AC 03/05 PO 0859 Insulin Aspart 0 TIDAC 03/04 0800 AC 03/05 SC 1205 Methylprednisolone 40 MG Q12 06/17 1000 AC 06/18 IV 0904 Metoprolol Succinate 150 MG DAILY 06/17 1000 AC 06/18 PO 0855 Last 24 Hrs of Lab/Rios Results Last 24 Hrs of Labs/Mics: Laboratory Tests 06/18/17 0624: Anion Gap 11, Estimated GFR 26 L, BUN/Creatinine Ratio 36.8 H, CBC w Diff MAN DIFF ORDERED, RBC 3.82 L, MCV 85.3, MCH 27.8, MCHC 32.6 L, RDW 17.0 H, MPV 10.0, Gran % 83.8 H, Lymphocytes % 12.3 L, Monocytes % 3.7, Eosinophils % 0.1, Basophils % 0.1, Absolute Granulocytes 4.7, Segmented Neutrophils 76 H, Band Neutrophils 6 H, Absolute Lymphocytes 0.7 L, Lymphocytes 13 L, Monocytes 5, Absolute Monocytes 0.2, Absolute Eosinophils 0, Absolute Basophils 0, Platelet Estimate ADEQUATE, Hypochromic-Microcytic 2+, Poikilocytosis 2+, Anisocytosis 1+ 06/17/17 1420: Troponin I < 0.01 Assessment/Plan Assessment: Ms Gumzan is a 81-year-old Samoan speaking female with past medical history of afib s/p PPM, atrial tachycardia with attempted ablation in 2012 with residual atrial arrhythmias maintained on chronic anticoagulation, 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 Minor in regards to changing patient's dose of Lasix from 60 mg/40 mg alternating to 40 mg daily. Cardiology agreed to our changed regimen and request that the patient follow-up as an outpatient for further management * TRC/nebs PRN * Doppler negative for VTE * Continue apixaban for Afib * Serial troponin/ECG negative * Patient stable for discharge today Problem List: 1. Bronchospasm, acute 2. CHF exacerbation Pain Ratin Pain Location: NA Pain Goal: Remain pain free Pain Plan: NA Tomorrow's Labs & Rationales: None SalmonJoceline rubalcavaangelika 06/18/17 1542: Attending MD Review Statement Attending Statement Attending MD Statement: examined this patient, discuss w/resident/PA/BACK TACKER, agreed w/resident/PA/BACK TACKER, discussed with family, reviewed EMR data (avail), discussed with nursing, discussed with case mgmt Attending Assessment/Plan: pt being dced on po lasix 40mg daily. d/w pt and pts daughter at bedside the care plan. pt will f/u with pulmonoloyg and cardiology as an outpatient after discharge.
[2017-06-18 08:09] LABS: ABSOLUTE BASOPHIL COUNT 0 /CUMM (0.0-0.2); ABSOLUTE EOSINOPHIL COUNT 0 /CUMM (0.0-0.7); ABSOLUTE GRANULOCYTE CT 4.7 /CUMM (1.4-6.5); ABSOLUTE LYMPH COUNT 0.7 /CUMM (1.2-3.4); ABSOLUTE MONOCYTE COUNT 0.2 /CUMM (0.10-0.60); BASOPHIL % 0.1 % (0.0-2.0); EOSINOPHIL % 0.1 % (0-5); GRANULOCYTE % 83.8 % (42.2-75.2); HEMATOCRIT 32.6 % (37-47); MEAN CORPUSCULAR HGB 27.8 PG (27.0-31.0); MEAN CORPUSCULAR HGB CONC 32.6 G/DL (33.0-37.0); MEAN CORPUSCULAR VOLUME 85.3 FL (81.0-99.0); PLATELET COUNT 178 /CUMM (130-400); RED BLOOD CELL CT 3.82 /CUMM (4.20-5.40); WHITE BLOOD CELL COUNT 5.6 /CUMM (4.8-10.8)
[2017-06-18 08:55] VITALS: BP 130/58
[2017-06-18] MEDS ORDERED: PREDNISONE10 M2 PO (10:57)
--- NOTE | 2017-06-18 10:59 | Patient Discharge Instructions ---
Discharge Instructions General Discharge Information You were seen/treated for: Acute on CHF Left bundle branch block on ECG Acute Kidney injury Asthmatic exacerbation You had these procedures: none Special Instructions: Follow up with the Fermentation Scientist within 1 week upon discharge Follow up with the Truck Hopper within 1 week upon discharge Follow up with your PCP within 1-2 weeks upon discharge Diet Continue normal diet: Yes Activity Other activity limits: As tolerated Acute Coronary Syndrome Inclusion Criteria At DC or during hospital stay patient has or had the following: ACS DIAGNOSIS No Discharge Core Measures Meds if any: Prescribed or Continued at Discharge Meds if any: NOT Prescribed or Continued at Discharge Congestive Heart Failure Inclusion Criteria At DC or during hospital stay patient has or had the following: CHF DIAGNOSIS No Discharge Core Measures Meds if any: Prescribed or Continued at Discharge Meds if any: NOT Prescribed or Continued at Discharge Cerebrovascular accident Inclusion Criteria At DC or during hospital stay patient has or had the following: CVA/TIA Diagnosis No Discharge Core Measures Meds if any: Prescribed or Continued at Discharge Meds if any: NOT Prescribed or Continued at Discharge Venous thromboembolism Inclusion Criteria VTE Diagnosis No VTE Type NONE VTE Confirmed by (Test) NONE Discharge Core Measures - Per Current guidelines, there needs to be overlap - treatment for the first 5 days of Warfarin therapy. - If discharged on Warfarin prior to 5 days of - overlap therapy, the patient will need to be - assessed for post discharge needs including - *Post discharge parental anticoagulation - *Warfarin and/or parental anticoagulation education - *Follow up date to check INR post discharge At least 5 days overlap therapy as Inpatient No Meds if any: Prescribed or Continued at Discharge Note: Overlap Therapy is Warfarin and Anticoagulant Meds if any: NOT Prescribed or Continued at Discharge
[2017-06-18] MEDS ORDERED: FUROSEMIDE40 M1 PO (13:07)
--- NOTE | 2017-06-19 13:38 | Discharge Summary ---
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 TRC/nebs were given as needed. Bilateral venous doppler was negative for DVT. We continue her Apixaban. Cardiology was consulted. CXR showed a hazy right basilar opacity. We also spoke with her filling station equipment mechanic in regards to changing patient's dose of Lasix from 60 mg/ 40 mg alternating to 40 mg daily. Cardiology agreed to our changed regimen and recommended that the patient follow-up as an outpatient for further management. Patient was sent home with a Prednisone taper and instructed to follow up with pulmonology as an outpatient. Allergies: Coded Allergies: Penicillins (SWELLING 11/14/15) Pertinent Lab Results: 06/17/17-0035 XRY-PORTABLE CHEST XRAY FINDINGS: Left-sided pacemaker lead tips overlie the right atrium and right ventricle. Patient appears status post TAVR. There is slight elevation of the right hemidiaphragm. There is adjacent hazy opacification of the right lung base with a possible small right pleural effusion. No focal left lung consolidation is seen. No evidence of pneumothorax. There is mild fullness of the central vasculature. The cardiac silhouette appears mildly enlarged for technique. Calcification is present at the aortic arch. No acute osseous findings are seen. IMPRESSION: Hazy right basilar opacity with adjacent possible small pleural effusion. Prominence of the central vasculature may reflect congestion, without overt edema. 06/17/17 US-EXT BILAT VENOUS DOPPLER FINDINGS: The examination is limited due to patient body habitus. Respiratory variation, normal compression and augmented flow are noted throughout the lower extremities. The visualized common femoral vein, superficial femoral vein, profunda femoral vein, popliteal vein and midcalf peroneal and posterior tibial venous segments show no evidence of deep venous thrombosis. There is no Lemon's cyst. IMPRESSION: Normal triplex scan without evidence of deep venous thrombosis involving the lower extremities. Disposition Summary Disposition Principal Diagnosis: Acute on chronic heart failure Additional Diagnosis: COPD exacerbation DEVI on CKD LBBB Discharge Disposition: home or self care Discharge Instructions General Discharge Information Code Status: Full Code Patient's Diet: Diabetic Patient's Activity: Full Follow-Up Instructions/Appts: Follow up with the Handbag Operator within 1 week upon discharge Follow up with the Airport Clerk within 1 week upon discharge Follow up with your PCP within 1-2 weeks upon discharge Medications at Discharge Discharge Medications: Stop taking the following medications: Furosemide (Furosemide) 20 MG TABLET ORAL DAILY Qty = 30 Continue taking these medications: Esomeprazole (Nexium) 40 MG CAPSULE.DR 1 Capsule ORAL DAILY Comments: NOT GIVEN IN HOSPITAL. Digoxin (Digoxin) 125 MCG TABLET 1 Tablet ORAL Every other day Comments: NOT GIVEN IN HOSPITAL. Glipizide (Glipizide ER) 10 MG TAB.ER.24 1 Tablet ORAL DAILY Comments: NOT GIVEN Metoprolol Succinate (Metoprolol Succinate) 50 MG TAB.ER.24H 3 Tablet ORAL DAILY Days = 90 Comments: Last Taken: 06/18/17 Time: 0900 AM Ferrous Sulfate (IRON) 325 MG TABLET 1 Tablet ORAL TWICE DAILY Comments: Last Taken:02/21/16 Time:1000 Cyanocobalamin (Vitamin B-12) (Unknown Strength) TABLET 1 Tablet ORAL DAILY Comments: NOT GIVEN IN HOSPITAL Saxagliptin (Onglyza) 5 MG TABLET 1 Tablet ORAL DAILY Days = 90 Comments: NOT GIVEN Simvastatin (Simvastatin*) 40 MG TABLET 1 Tablet ORAL Every night Days = 90 Comments: Last Taken: 06/17/17 Time: 5PM Budesonide/Formoterol Fumarate (Symbicort 160-4.5 Mcg Inhaler) 10.2 GM HFA.AER.AD 2 Puff Inhale through mouth TWICE DAILY Days = 30 Comments: Last Taken: 06/18/17 Time: 0900 AM Albuterol Sulfate (Albuterol Sulfate) 2.5 MG/3 ML VIAL.NEB 3 Milliliters Inhale through mouth EVERY 4 HRS WHILE AWAKE Days = 30 Comments: GIVEN 11/18/15 @ 0800 Apixaban (Eliquis) 5 MG TABLET 5 Milligram ORAL TWICE DAILY Comments: Last Taken: 06/18/17 Time: 0900 AM Potassium Chloride (Klor-Con 10) 10 MEQ TABLET.ER 10 Millequivalent ORAL DAILY Comments: NOT GIVEN IN HOSPITAL. Irbesartan (Avapro) 150 MG TABLET 150 Milligram ORAL DAILY Comments: NOT GIVEN IN HOSPITAL. Albuterol Sulfate (Proair Hfa) 90 MCG HFA.AER.AD 90 Millequivalent INHALATION DAILY Comments: NOT GIVEN IN HOSPITAL. Allopurinol (Zyloprim) 300 MG TABLET 150 Milligram ORAL DAILY Qty = 30 Comments: Last Taken: 06/18/17 Time: 0900 AM Start taking the following new medications: Prednisone (Prednisone) 10 MG TABLET 10 Milligram ORAL SEE INSTRUCTIONS Qty = 15 No Refills Instructions: Take 40 mg 3/6, 3/7 Take 30 mg 3, 3 Take 20 mg 3, 3 Take 10 mg 3 Comments: GIVEN IV SOLUMEDROL IN HOSPITAL. 06/18/17 0900AM Furosemide (Furosemide) 40 MG TABLET 1 Tablet ORAL DAILY Qty = 30 No Refills Comments: GIVEN IV IN HOSPITAL. 06/18/17 0900 Copies To: Elayne GUAJARDO,Georgi Messina; Wale Coreas MD; Messi Diaz MD
== END 2017-06-18 14:50 | DRG 291 ==
LOC: ERH 00:09 → ERHI 02:50 → 1NO 02:50 → ENRESERV 03:35 → 1NO 04:05
PROVIDERS: Emergency Medicine; Internal Medicine Adolescent Medicine; Student in an Organized Health Care Education/Training Program
DX: I13.0 Hypertensive heart and chronic kidney disease with heart failure and stage 1 through stage 4 chronic kidney disease, or unspecified chronic kidney disease (principal); I50.33 Acute on chronic diastolic (congestive) heart failure; N17.9 Acute kidney failure, unspecified; E11.22 Type 2 diabetes mellitus with diabetic chronic kidney disease; J45.901 Unspecified asthma with (acute) exacerbation; I48.91 Unspecified atrial fibrillation; I49.5 Sick sinus syndrome; I47.1 Supraventricular tachycardia; Z79.01 Long term (current) use of anticoagulants; Z95.0 Presence of cardiac pacemaker; N18.3 Chronic kidney disease, stage 3 (moderate); Z79.84 Long term (current) use of oral hypoglycemic drugs; I87.2 Venous insufficiency (chronic) (peripheral); D64.9 Anemia, unspecified; I25.10 Atherosclerotic heart disease of native coronary artery without angina pectoris; E78.5 Hyperlipidemia, unspecified; M10.9 Gout, unspecified; Z79.51 Long term (current) use of inhaled steroids; Z79.52 Long term (current) use of systemic steroids; Z95.3 Presence of xenogenic heart valve; I44.7 Left bundle-branch block, unspecified; I35.0 Nonrheumatic aortic (valve) stenosis; H26.9 Unspecified cataract; Z96.659 Presence of unspecified artificial knee joint
CPT/HCPCS: 1NSP; 36592; 71045; 82436; 93005; 93010; 93970; 96374; J1940; J2920; J2930; J3490; J7508